=== PATIENT | male | born 1955 | race Caucasian/White ===

== ENCOUNTER → 2020-02-24 | Day surgery (SDC) | payer MEDICARE, OTHER ==
[2020-02-21 13:07] LABS: BASOPHILS % 0.4 % (0.0-1.0); EOSINOPHILS # (AUTO) 0.3 (0.0-0.4); EOSINOPHILS % 3.9 % (0.0-6.0); HEMATOCRIT 42.3 % (38.2-49.6); HEMOGLOBIN 14.2 g/dL (14.0-18.0); LYMPHOCYTES # (AUTO) 1.3 (1.0-3.2); LYMPHOCYTES % 19.6 % (18.0-39.1); MEAN CORPUSCULAR HEMOGLOBIN 29.3 pg (28-32); MEAN CORPUSCULAR HGB CONC 33.6 g/dL (31-35); MEAN CORPUSCULAR VOLUME 87.2 fL (81-99); MONOCYTES # (AUTO) 0.7 (0.2-0.8); MONOCYTES % 9.7 % (4.4-11.3); NEUTROPHILS # (AUTO) 4.4 (2.1-6.9); PLATELET COUNT 185 x10e3/uL (140-360); RED BLOOD COUNT 4.85 x10e6/uL (4.3-5.7)
[2020-02-21 14:22] LABS: ANION GAP 18.9 mmol/L (8-16); CALCIUM 9.2 mg/dL (8.4-10.2); CREATININE, SERUM 1.28 mg/dL (0.72-1.25); POTASSIUM 3.9 mmol/L (3.5-5.1)
[~2020-02-24] MED LIST: ASPIRIN81 MG PO; B-121000 MCG PO; BIOTIN1000 MCG PO; CEFTRIAXONE SOD 1 GM/NS 50 ML 50 ML IV ONE; COQ1050 MG PO; CYTRA-2 ORAL S473 ML PO; DEXAMETHASONE SOD PHOS INJ 4 MG/ML VIAL ONE; DHEA25 MG PO; FENTANYL CITRATE/PF 100MCG/2 ML INJ ONE; FINASTERIDE5 MG PO; FOLIC ACID PO; L-CARNITINE500 M1 PO; LIDOCAINE HCL 2% LOCAL INJ 5 ML SDV VIAL INJ ONE; MAGNESIUM OXID400 MG PO; MELATONIN3 M1 PO; MIDAZOLAM HCL 2 MG/2 ML VIAL ONE; NAPROXEN250 MG PO; ONDANSETRON HCL INJ 2MG/ML 2ML 2 MG/ML VIAL ONE; OXYBUTYNIN CHLOR5 MG PO; PROPOFOL IV EMULSION 10 MG/ML 20 ML VIAL ONE; RED YEAST RICE600 M1 PO; SEVOFLURANE INHAL SOLN 250 ML PEN BTL ONE; SUPER B MAXI C0.4 MG PO; TESTOSTERO200 MG/1 M IM; TRIAMTERENE-HCTZ1 EA PO; VITAMIN C1000 MG PO; VITAMIN D310 MCG/1 M PO; VITAMIN E100 UNI3 PO; ZINC SULFATE220 M1 PO; [UNRECOGNIZED DRUG - OTHER] PO
[2020-02-24 14:40] VITALS: BP 151/91
== END | disposition home or self-care (01) ==
LOC: OR 10:01
PROVIDERS: ATTEND Urology
DX: N20.1 Calculus of ureter (principal); Z96.0 Presence of urogenital implants; N40.1 Benign prostatic hyperplasia with lower urinary tract symptoms; R35.1 Nocturia; R80.9 Proteinuria, unspecified; N52.9 Male erectile dysfunction, unspecified; E29.1 Testicular hypofunction; G47.33 Obstructive sleep apnea (adult) (pediatric); I10 Essential (primary) hypertension; K21.9 Gastro-esophageal reflux disease without esophagitis; Z01.810 Encounter for preprocedural cardiovascular examination; Z01.812 Encounter for preprocedural laboratory examination; Z01.818 Encounter for other preprocedural examination; Z11.59 Encounter for screening for other viral diseases; Z79.82 Long term (current) use of aspirin; Z68.30 Body mass index [BMI] 30.0-30.9, adult; Z86.73 Personal history of transient ischemic attack (TIA), and cerebral infarction without residual deficits
CPT/HCPCS: 36415; 50590; 71046; 74018; 80048; 83970; 84550; 85025; 93005; J0696; J1100; J2001; J2250; J2405; J2704; J3010; U0002

== ENCOUNTER → 2020-03-30 | Day surgery (SDC) | payer MEDICARE, OTHER ==
[2020-03-27 10:17] LABS: BASOPHILS # (AUTO) 0.1 (0.0-0.1); BASOPHILS % 0.6 % (0.0-1.0); EOSINOPHILS # (AUTO) 0.2 (0.0-0.4); EOSINOPHILS % 2.3 % (0.0-6.0); HEMATOCRIT 42.4 % (38.2-49.6); HEMOGLOBIN 14.2 g/dL (14.0-18.0); LYMPHOCYTES # (AUTO) 1.3 (1.0-3.2); LYMPHOCYTES % 15.5 % (18.0-39.1); MEAN CORPUSCULAR HEMOGLOBIN 29.6 pg (28-32); MEAN CORPUSCULAR HGB CONC 33.5 g/dL (31-35); MEAN CORPUSCULAR VOLUME 88.5 fL (81-99); MONOCYTES # (AUTO) 0.9 (0.2-0.8); MONOCYTES % 10.4 % (4.4-11.3); PLATELET COUNT 185 x10e3/uL (140-360); RED BLOOD COUNT 4.79 x10e6/uL (4.3-5.7); RED CELL DISTRIBUTION WIDTH 12.9 % (11.7-14.4)
[2020-03-27 10:47] LABS: ANION GAP 13.1 mmol/L (8-16); CALCIUM 9.3 mg/dL (8.4-10.2); CREATININE, SERUM 1.32 mg/dL (0.72-1.25); POTASSIUM 4.1 mmol/L (3.5-5.1)
--- NOTE | 2020-03-27 11:18 | Diagnostic Imaging Report ---
Abdomen one view KUB INDICATION: Preop ^[id number] ^[id number] ^PRE -OP Comparison: 02/21/2020. Discussion: Left double-J internal ureteral stent is noted projecting in satisfactory position. Multiple punctate renal calculi identified projecting in the expected region of the right renal silhouette. No definite calcification is identified projecting at the left renal silhouette. Bowel loops are not dilated. Mild colonic stool retention is noted. Focal right convex curvature at L3 is noted with advanced degenerative changes at L2-3 and L3-4. Negative for acute osseous abnormality. IMPRESSION: Essentially no change when compared with the prior exam. Left double-J internal ureteral stent is noted. Unchanged multiple punctate calcific densities projecting over the right renal silhouette with the largest measuring up to 4 mm at the inferior pole. Signed by: Dr. Jadiel Altamirano M.D. on 03/27/2020 11:15 AM
[~2020-03-30] MED LIST changes: +B&O 60MG R/S 60 MG SUPP PR ONE; +GENTAMICIN 80MG/NS 100 ML 200 ML IV ONE; +IOPAMIDOL 300MG/ML 50ML INFUS..BTL IV ONE
[2020-03-30 17:11] VITALS: BP 147/79
--- NOTE | 2020-03-31 05:10 | Operative Report ---
DATE OF PROCEDURE: 03/30/2020 SURGEON: Zaid Damian MD PREOPERATIVE DIAGNOSES: 1. Right nephrolithiasis. 2. Left nephrolithiasis. 3. Left ureterolithiasis. POSTOPERATIVE DIAGNOSES: 1. Right nephrolithiasis. 2. Left nephrolithiasis. 3. Left ureterolithiasis. OPERATIONS PERFORMED: 1. Right-sided extracorporeal shockwave lithotripsy (separate procedure performed for the stone on the right-hand side done from a separate approach). 2. Cystourethroscopy with complicated removal of left indwelling ureteral stent (separate procedure performed for the diagnosis). 3. Left semi-rigid ureteroscopy with stone extraction of ureteral stones (separate procedure performed for the left-sided ureteral stones). 4. Left flexible ureteropyeloscopy with extraction of renal stones (separate procedure performed for the diagnosis of the renal stones). 5. Radiological services with supervision and interpretation of ureteroscopy. 6. Supervision of fluoroscopy, no radiologist present. ANESTHESIA: General. COMPLICATIONS: None. CLINICAL SUMMARY: Patrick Martinez is a 65-year-old man with bilateral nephrolithiasis. He is brought for right ESWL and removal of his left stent and evaluation and management of any residual stones. He is aware of the risks of bleeding, infection, injury to adjacent structures, need for additional procedures and elected to proceed. OPERATIVE PROCEDURE IN DETAIL: Informed consent was verified, Patrick Martinez was properly identified, taken to the operating room, placed on the lithotripsy table in supine position. Anesthesia was uneventfully begun. The patient's right nephrolithiasis was localized with biplanar fluoroscopy. A total of 3000 shocks were delivered to these two stones with excellent fragmentation noted. The patient was then carefully gently repositioned in dorsal lithotomy position with all pressure points well padded. His genitalia were prepared and draped in usual sterile fashion. The cystoscope sheath with the visual obturator in place was atraumatically inserted into the patient's urethra. It was guided unremarkable distal urethra through the prostate bed, which exhibited BPH and into the patient's bladder. There was a stent emerging from the left ureteral orifice. A guidewire was then placed alongside the stent and guided to the level of the patient's kidney. The stent was then grasped completely, removed and discarded. Ureteroscopy was then performed. First the semi-rigid ureteroscope and then the flexible ureteroscope were then brought up into the left ureter in an atraumatic fashion. We identified numerous proximal stones and these were extracted with Nitinol tipless basket in several passes via the flexible ureteroscopy sheath, which was atraumatically placed. We then performed panendoscopy of the intrarenal collecting system, identified numerous stones and these were extracted as well. Rick's plaques were present throughout and consistent with a recurrent bilateral stone disease this patient has had. We carefully re-examined the ureter as we exited, it exhibited no stones, no suspicious lesions and no strictures. The patient's bladder was drained. Cystoscope was withdrawn. A Belladonna opium suppository was placed revealing 40 g prostate that is smooth, non-fluctuant without any nodules and the patient was uneventfully reversed from anesthesia and taken to recovery room in stable condition. No complications procedure. He tolerated the procedure well. Plans will be to follow the patient up in the office at which point in time we will perform uroflowmetry and bladder ultrasonography. Ongoing urological followup is a must including metabolic stone workup for future stone prevention. MD NANDO Snyder/KENISHA /[id number]
== END | disposition home or self-care (01) ==
LOC: OR 12:18
PROVIDERS: ATTEND Urology
DX: N20.0 Calculus of kidney (principal); N20.1 Calculus of ureter; Z46.6 Encounter for fitting and adjustment of urinary device; N28.89 Other specified disorders of kidney and ureter; I12.9 Hypertensive chronic kidney disease with stage 1 through stage 4 chronic kidney disease, or unspecified chronic kidney disease; N18.9 Chronic kidney disease, unspecified; N40.1 Benign prostatic hyperplasia with lower urinary tract symptoms; R80.9 Proteinuria, unspecified; N52.9 Male erectile dysfunction, unspecified; E29.1 Testicular hypofunction; G47.33 Obstructive sleep apnea (adult) (pediatric); Z01.812 Encounter for preprocedural laboratory examination; Z01.818 Encounter for other preprocedural examination; Z11.59 Encounter for screening for other viral diseases; Z79.82 Long term (current) use of aspirin; Z68.31 Body mass index [BMI] 31.0-31.9, adult; Z86.73 Personal history of transient ischemic attack (TIA), and cerebral infarction without residual deficits
CPT/HCPCS: 36415; 50590; 52352; 74018; 80048; 85025; 88300; C1758; C1769; J0696; J1100; J1580; J2001; J2250; J2405; J2704; J3010; U0002